=== PATIENT | female | born 1970 | race Caucasian/White ===

== ENCOUNTER 2017-01-27 13:08 | Emergency (ER) | payer SELFPAY ==
[~2017-01-27] VITALS: Ht 154.9 cm; Wt 64.0 kg
[2017-01-27 14:30] VITALS: BP 136/81
== END 2017-01-27 14:30 | disposition home or self-care (01) ==
LOC: ED 13:08
DX: S81.811A Laceration without foreign body, right lower leg, initial encounter (principal); W22.8XXA Striking against or struck by other objects, initial encounter; Y93.55 Activity, bike riding; Y99.8 Other external cause status; Y92.89 Other specified places as the place of occurrence of the external cause
CPT/HCPCS: 90715; J2001